=== PATIENT | female | born 1995 ===

== ENCOUNTER 2018-05-11 11:35 | Observation (INO) | payer MEDICAID, OTHER ==
[~2018-05-11] VITALS: Ht 152.4 cm; Wt 78.0 kg
[2018-05-11] MEDS ORDERED: LACTATED RINGER'S 1,000 ML IV ONE ×2 (12:15→13:30)
[2018-05-11 13:50] LABS: Urine Bacteria NONE SEEN /hpf (None Seen); Urine Blood Negative /uL (Negative); Urine Mucus FEW (None Seen); Urine Specific Gravity 1.024 (1.001-1.035); Urine WBC <1 /hpf (0 - 5)
[2018-05-11] MEDS ORDERED: BUTORPHANOL TARTRATE 2 MG/1 ML VIAL ONE (13:50)
[2018-05-11] MEDS ORDERED: ONDANSETRON HCL 4 MG/2 ML VIAL ONE (13:50)
[2018-05-11] MEDS ORDERED: BUTORPHANOL TARTRATE 2 MG/1 ML VIAL IV ONE (14:00)
[2018-05-11] MEDS ORDERED: ONDANSETRON HCL 4 MG/2 ML VIAL IV ONE (14:00)
[2018-05-11 14:09] LABS: Alcohol, Urine < 3.0 mg/dL (0-5); Amphetamine Screen, Urine NEGATIVE (NEGATIVE); Barbiturate Scree,Urine NEGATIVE (NEGATIVE); Benzodiazephine Screen, Urine NEGATIVE (NEGATIVE); Cannabinoid Screen, Urine POSITIVE (NEGATIVE); Cocaine Screen, Urine NEGATIVE (NEGATIVE); Opiate Scree,Urine NEGATIVE (NEGATIVE); Phencyclidine Screen, Urine NEGATIVE (NEGATIVE)
== END 2018-05-11 15:50 | disposition home or self-care (01) | DRG 566 ==
LOC: LDRP 11:35
PROVIDERS: ADMIT Specialist; ATTEND Specialist
DX: O99.89 Other specified diseases and conditions complicating pregnancy, childbirth and the puerperium (principal); M54.30 Sciatica, unspecified side; Z3A.37 37 weeks gestation of pregnancy
CPT/HCPCS: 59025; 76805; 80307; 81001; 81002; 96361; 96374; 96375; G0378; J0595; J2405; 96365; 96366